=== PATIENT | female | born 2005 | race Caucasian/White ===

== ENCOUNTER → 2024-09-10 | Outpatient (CLI) | payer BC, SELFPAY ==
--- NOTE | 2024-09-10 07:22 | MRI_ITS ---
PROCEDURE: LOWER EXT JOINT ONLY W/WO CONT 09/10/2024 REASON FOR EXAM: SPRAIN OF AN UNSPECIFIED LIGAMENT OF LEFT ANKLE, LEFT ANKLE PAIN TECHNIQUE: T1, T2, stir, postcontrast T1 fat-sat left ankle MRI w/WO CONT CONTRAST: 15 cc Clariscan COMPARISON: None FINDINGS: Bones: There is normal articulation of the ankle joint. No acute fractures or dislocations. Normal marrow signal. The contours of the talar dome are normal. There is a 0.3 cm corticated osteochondral fragment in the anterior tibiotalar joint space. Achilles tendon: Intact Achilles tendon. Plantar aponeurosis is intact. The lateral, medial and central cords of the plantar fascia are intact. Tendons: The peroneal tendons demonstrate increased fluid in the tendon sheath without tendon tear or retraction, mild tenosynovitis. There is increased fluid in the posterior tibial tendon sheath without tendon tear or retraction, mild tenosynovitis. The flexor digitorum longus and flexor hallucis longus tendons are intact. The extensor tendons are intact. The extensor retinaculum is intact and normal in signal. Sinus Tarsi: The subtalar joint is intact. Signal in the sinus tarsi is normal. Transverse and cervical ligaments are intact. Ligaments: Lateral the posterior tibiofibular ligament is intact. There is thickening and attenuation in the anterior distal tibiofibular ligament without laxity, chronic grade 2 sprain. The anterior and posterior talofibular ligaments are intact. The medial ankle ligaments including the deltoid and spring ligaments are intact. Effusion: There is no joint effusion at the tibiotalar articulation. There is a small effusion of the posterior subtalar joint. There are no suspicious enhancing lesions. MRI/Lower Ext Joint Only W/WO Cont IMPRESSION: There is thickening and attenuation in the anterior distal tibiofibular ligamen t without laxity, chronic grade 2 sprain. The peroneal tendons demonstrate increased fluid in the tendon sheath without t endon tear or retraction, mild tenosynovitis. There is increased fluid in the posterior tibial tendon sheath without tendon t ear or retraction, mild tenosynovitis. There is a small effusion of the posterior subtalar joint. There is a 0.3 cm corticated osteochondral fragment in the anterior tibiotalar joint space. Reading Location: [facility]
--- NOTE | 2024-09-10 07:22 | MRI_ITS ---
PROCEDURE: LOWER EXT JOINT ONLY W/WO CONT 09/10/2024 REASON FOR EXAM: SPRAIN OF AN UNSPECIFIED LIGAMENT OF LEFT ANKLE, LEFT ANKLE PAIN TECHNIQUE: T1, T2, stir, postcontrast T1 fat-sat left ankle MRI w/WO CONT CONTRAST: 15 cc Clariscan COMPARISON: None FINDINGS: Bones: There is normal articulation of the ankle joint. No acute fractures or dislocations. Normal marrow signal. The contours of the talar dome are normal. There is a 0.3 cm corticated osteochondral fragment in the anterior tibiotalar joint space. Achilles tendon: Intact Achilles tendon. Plantar aponeurosis is intact. The lateral, medial and central cords of the plantar fascia are intact. Tendons: The peroneal tendons demonstrate increased fluid in the tendon sheath without tendon tear or retraction, mild tenosynovitis. There is increased fluid in the posterior tibial tendon sheath without tendon tear or retraction, mild tenosynovitis. The flexor digitorum longus and flexor hallucis longus tendons are intact. The extensor tendons are intact. The extensor retinaculum is intact and normal in signal. Sinus Tarsi: The subtalar joint is intact. Signal in the sinus tarsi is normal. Transverse and cervical ligaments are intact. Ligaments: Lateral the posterior tibiofibular ligament is intact. There is thickening and attenuation in the anterior distal tibiofibular ligament without laxity, chronic grade 2 sprain. The anterior and posterior talofibular ligaments are intact. The medial ankle ligaments including the deltoid and spring ligaments are intact. Effusion: There is no joint effusion at the tibiotalar articulation. There is a small effusion of the posterior subtalar joint. There are no suspicious enhancing lesions. MRI/Lower Ext Joint Only W/WO Cont IMPRESSION: There is thickening and attenuation in the anterior distal tibiofibular ligamen t without laxity, chronic grade 2 sprain. The peroneal tendons demonstrate increased fluid in the tendon sheath without t endon tear or retraction, mild tenosynovitis. There is increased fluid in the posterior tibial tendon sheath without tendon t ear or retraction, mild tenosynovitis. There is a small effusion of the posterior subtalar joint. There is a 0.3 cm corticated osteochondral fragment in the anterior tibiotalar joint space. Reading Location: [facility]
--- OUTSIDE RECORDS SUMMARY | 2024-09-10 07:34 | XMS RPT_ITS | CCD ---
Author Organization [facility] Inform ion Partnership [facility] Care Team Providers Care Superintendent Plant Name Role Phone Jay, Christopher Unavailable Unavailable Jay, Christopher Unavailable Unavailable Jay, Christopher Unavailable Unavailable Jay, Christopher Unavailable Unavailable [place], Rachel Unavailable Unavailable Wood, Maryellen L Unavailable Unavailable FURNESS, GREGOR T Primary Care Unavailable None, Physician Primary Care Provider [phone] DALILA DEVINE Attending Unavailable Gregor Jha MD Primary Care Provider Gregor Jha MD Primary Care Provider [phone] FURNESS, GREGOR T Primary Care Unavailable VINCENT DAMIAN Attending Unavailable VINCENT DAMIAN Attending Unavailable FURNESS, GREGOR T Primary Care Unavailable VINCENT DAMIAN Attending Unavailable VINCENT DAMIAN Attending Unavailable ALTVINCENT HOANG Attending Unavailable Furness Gregor WILKINSON Primary Care Provider GREGOR JHA Attending Unavailable FURNESS, GREGOR T Primary Care Unavailable Furness, Gregor Primary Care Unavailable Sreekanth Smalls Referring Unavailable Sreekanth Smalls Attending Unavailable Allergies Allergy Classification Reported Allergen(s) Allergy Type Date of Onset Reaction(s) Facility (1 source) No Known Medication Allergies; Translations: [No Known Medication Allergies] Propensity to adverse reactions to drug (disorder) [facility] Repository Medications Current Medications
--- OUTSIDE RECORDS SUMMARY | 2024-09-10 07:34 | XMS RPT_ITS | CCD ---
Author Organization [facility] Inform ion Partnership [facility] Care Team Providers Care Mortgage Assistant Name Role Phone Jay, Christopher Unavailable Unavailable Jay, Christopher Unavailable Unavailable Jay, Christopher Unavailable Unavailable Jay, Christopher Unavailable Unavailable [place], Rachel Unavailable Unavailable Wood, Maryellen L Unavailable Unavailable FURNESS, GREGOR T Primary Care Unavailable None, Physician Primary Care Provider [phone] DALILA DEVINE Attending Unavailable Gregor Jha MD Primary Care Provider Gregor Jha MD Primary Care Provider [phone] FURNESS, GREGOR T Primary Care Unavailable VINCENT [...] Propensity to adverse reactions to drug (disorder) [facility] Repository Medications Current Medications
== END | disposition home or self-care (01) ==
PROVIDERS: PCP Family Medicine; Referring Provider Student in an Organized Health Care Education/Training Program; Visit Provider Student in an Organized Health Care Education/Training Program
DX: S93.402A Sprain of unspecified ligament of left ankle, initial encounter (principal); M79.672 Pain in left foot; X58.XXXA Exposure to other specified factors, initial encounter
CPT/HCPCS: 73723; A9575